=== PATIENT | male | born 2000 | race Caucasian/White ===

== ENCOUNTER 2022-05-29 06:50 | Day surgery (SDC) | payer BC ==
[2022-05-25 15:02] LABS: Urine WBC None Seen /hpf (0 - 3)
[2022-05-25 15:06] LABS: Basophils # (auto) 0.1 10 ^3/uL (0-0.2); Basophils % (auto) 0.7 % (0.0-2.0); Eosinophils # (auto) 0.5 10 ^3/uL (0-0.8); Eosinophils % (auto) 6.3 % (0.0-7.0); Hemoglobin 16.6 g/dL (13.5-17.5); Lymphocytes # (auto) 2.3 10 ^3/uL (0.4-5.4); Lymphocytes % (auto) 27.5 % (10.0-50.0); Mean Corpuscular Hemoglobin 29.8 pg (28.0-32.0); Mean Corpuscular Hgb Conc. 33.9 g/dL (32.0-36.0); Monocytes # (auto) 0.7 10 ^3/uL (0-1.3); Monocytes % (auto) 7.9 % (0.0-12.0); Neutrophils # (auto) 4.8 10 ^3/uL (1.6-8.6); Neutrophils % (auto) 57.6 % (37.0-80.0); Nucleated Red Blood Cells % 0.3 %; Red Blood Cells 5.57 10^6/uL (4.5-5.90); White Blood Cell 8.3 10^3/uL (4.4-10.8)
[2022-05-25 15:28] LABS: Urine Bacteria NONE SEEN /hpf (None Seen); Urine Blood Negative /uL (Negative); Urine Specific Gravity 1.021 (1.001-1.035)
[2022-05-25 15:33] LABS: Calcium 9.2 mg/dL (8.5-10.1); Potassium 4.1 mmol/L (3.5-5.1)
[2022-05-25 15:36] LABS: BUN/Creatinine Ratio 9.2; Bilirubin, Total 0.7 mg/dL (0.2-1.0); Total Protein 8.1 g/dL (6.4-8.2)
[2022-05-25 15:37] LABS: INR 0.99 (0.9-1.15); Partial Thromboplastin Time 29.9 sec (24.6-33.4)
[~2022-05-29] VITALS: Ht 185.4 cm; Wt 171.0 kg
[~2022-05-29 06:50] MED LIST: ALLO300T2 PO
[2022-05-29] MEDS ORDERED: METOCLOPRAMIDE HCL 5MG/ml INJ 2ml VIAL IV ONE (06:51)
[2022-05-29] MEDS ORDERED: BUPIVACAINE 0.25% INJ 50ML VIAL ONE (07:06)
[2022-05-29] MEDS ORDERED: EPINEPHrine HCL 1 MG/1 ML AMP ONE (07:06)
[2022-05-29] MEDS ORDERED: MIDAZOLAM HCL 2MG/2ML 2ml VIAL (1mg/ml) ONE (07:08)
[2022-05-29] MEDS ORDERED: fentaNYL CITRATE 100 MCG/2 ML VL ONE ×3 (07:08→09:20)
[2022-05-29] MEDS ORDERED: VANCOMYCIN HCL 1000 MG VL ONE (07:13)
[2022-05-29] MEDS ORDERED: ceFAZolin 1GM/50ML 100 ML IV ONE (07:16)
[2022-05-29] MEDS ORDERED: KETOROLAC TROMETH 30 MG/ML 1ML VIAL ONE (07:33)
[2022-05-29] MEDS ORDERED: DexAMETHasone SOD PHOS 10MG/1ML VIAL INJ ONE (07:33)
[2022-05-29] MEDS ORDERED: ONDANSETRON HCL 4 MG/2 ML VIAL ONE (07:33)
[2022-05-29] MEDS ORDERED: LIDOCAINE 2% (LOCAL ANESTH.) PF 5ml SDV ONE ×2 (07:33→08:11)
[2022-05-29] MEDS ORDERED: PROPOFOL 10 MG/ML 20 ML IV ONE (07:34)
[2022-05-29] MEDS ORDERED: LIDOCAINE 2% JELLY 11ml (GLYDO) ONE (07:53)
[2022-05-29] MEDS ORDERED: ceFAZolin 1GM VL ONE (08:11)
[2022-05-29] MEDS ORDERED: ePHEDrine SULFATE 50 MG/ML AMP ONE (08:16)
[2022-05-29] MEDS ORDERED: MEPERIDINE HCL (25 MG/ML) 1ML VIAL ONE (10:44)
[2022-05-29] MEDS ORDERED: HYDR-4072 PO (11:40)
[2022-05-29] MEDS ORDERED: ASPI-498 OR (11:45)
[2022-05-29] MEDS ORDERED: CEPH-509 PO (11:45)
[2022-05-29 11:55] VITALS: BP 121/72
== END 2022-05-29 12:20 | disposition home or self-care (01) ==
LOC: SUR 06:50
PROVIDERS: ATTEND Orthopaedic Surgery Sports Medicine
DX: M24.871 Other specific joint derangements of right ankle, not elsewhere classified (principal); M10.9 Gout, unspecified; I10 Essential (primary) hypertension; E66.01 Morbid (severe) obesity due to excess calories; G89.29 Other chronic pain; F17.200 Nicotine dependence, unspecified, uncomplicated; Z90.89 Acquired absence of other organs; Z68.42 Body mass index [BMI] 45.0-49.9, adult; Z20.822 Contact with and (suspected) exposure to COVID-19
CPT/HCPCS: 27659; 27698; 29895; 29898; 36415; 73600; 80053; 81001; 85025; 85610; 85730; J0171; J0690; J1100; J1885; J2001; J2175; J2250; J2405; J2704; J2765; J3010; J3370; J3490; U0003; 76000